=== PATIENT | female | born 1955 | race Caucasian/White ===

== ENCOUNTER 2018-11-27 07:57 | Outpatient (CLI) | payer MEDICARE ==
[~2018-11-27 07:57] MED LIST: ALBU18HF INH; ASPI-496 PO; CHOL200052 PO; FEXO180T72 PO; FEXO1TAB29 PO; FEXO60TA24 PO; FORM12CA INH; LEVO112T2 PO; LEVO112T4 PO; LOSA1TAB22 PO; MULT-658 PO; OMEP-110 PO; PRAV20TA2 PO; SALM50DI IH; TIOT18CA INH; WHEA1POW5 PO; ZOLP10TA PO; aspirin PO
[2018-11-27] MEDS ORDERED: VISIPAQUE 270 MG/ML, 50ML BOTTLE ONE (08:54)
== END 2018-11-27 23:59 | disposition home or self-care (01) ==
LOC: RAD 07:57
PROVIDERS: ATTEND Pathology Hematology
DX: C25.1 Malignant neoplasm of body of pancreas (principal)
CPT/HCPCS: 36598; 76000; J1642; Q9966

== ENCOUNTER 2019-01-26 13:34 | Outpatient (CLI) | payer MEDICARE ==
[2019-01-26] MEDS ORDERED: OMNIPAQUE 350 MG/ML, 100ML BOTTLE ONE (15:04)
== END 2019-01-26 23:59 | disposition home or self-care (01) ==
LOC: CFH 13:34
PROVIDERS: ATTEND Pathology Hematology
DX: C25.1 Malignant neoplasm of body of pancreas (principal)
CPT/HCPCS: 74170; Q9967